=== PATIENT | female | born 1985 | race Caucasian/White ===

== ENCOUNTER → 2016-07-03 | Outpatient (CLI) | payer OTHER ==
[2016-07-03 11:01] LABS: CH 32.2; CHCM 33.2; HCT 35.2 % (34.0-46.0); HDW 2.84; HGB 11.7 gm/dL (11.4-16.0); MCH 32.5 pg (25.0-35.0); MCHC 33.3 g/dL (31.0-37.0); MCV 97.6 fL (80.0-100.0); Mean Platelet Volume 8.1; RBC 3.61 m/uL (3.80-5.40); RDW 13.3 % (11.5-15.5); WBC 11.9 k/uL (3.8-10.6)
== END | disposition home or self-care (01) ==
LOC: LABWHC1 09:24
PROVIDERS: ATTEND Obstetrics & Gynecology
DX: Z34.82 Encounter for supervision of other normal pregnancy, second trimester (principal); Z3A.00 Weeks of gestation of pregnancy not specified
CPT/HCPCS: 36415; 82950; 85027

== ENCOUNTER → 2016-09-01 | Outpatient (CLI) | payer OTHER ==
--- NOTE | 2016-09-02 08:30 | US ---
EXAMINATION TYPE: US OB anatomy transabd third trimester DATE OF EXAM: 09/01/2016 9:32 AM COMPARISON: Second trimester ultrasound April 23, 2016 HISTORY: Large for dates O36.63X0 TECHNIQUE: Transabdominal (TA) EXAM MEASUREMENTS: GESTATIONAL AGE / DATING Physician Established: (34 weeks/5 days) EDC: 10/08/16 Dates by LMP: (34 weeks/5 days) EDC: 10/08/16 Dates by First Scan: (34 weeks/5 days) EDC: 10/08/16 Dates by Current Scan for: (34 weeks/5 days) EDC: 10/08/16 SURVEY IUP: Single PLACENTA: Anterior PREVIA: No previa KARY: 11.1 cm CERVICAL LENGTH (transabdominal: norm > 3.0cm): 5.1 cm BIOMETRY PRESENTATION: Vertex LIE: Longitudinal BPD: 8.4 cm 33 weeks / 6 days HC: 32. cm 36 weeks / 1 days AC: 31 cm 35 weeks / 1 days FL: 6.2 cm 35 weeks / 3 days ESTIMATED WEIGHT IN GRAMS: 2382 grams ESTIMATED WEIGHT IN LBS/OZS: 5 lbs. 4 oz. WEIGHT PERCENTAGE BASED ON ESTABLISHED DATE: 32 % HC/AC: 1.0 FL/AC: 20 HEART RATE: 135 bpm RHYTHM: Normal ANATOMY SEEN (within normal limits): Three Vessel Cord Stomach Midline Falx Cavus Septi Pellucidi Kidneys (bilateral) Bladder Longitudinal Spine Transverse Spine Nose / Lips ANATOMY NOT SEEN: * Lateral Vent (< 1 cm) cm * Cisterna Magna (< 1.1 cm) cm * Nuchal Fold (< 0.6 cm) cm * Cerebellum (varies with age) cm Choroid Plexus (bilateral) Four Chamber Heart Outflow tracts: LVOT/RVOT Situs Diaphragm Cord Insert Arms (bilateral) Legs (bilateral) Single live intrauterine gestation is redemonstrated. Normal cephalad presentation to fetus is curren tly seen. There is no ultrasound evidence for placenta previa. Amniotic fluid index is within normal limits. biometry measurements are congruent and within normal limits. Detailed anatomical surve y is suboptimal due to patient's advanced age with multiple structures not seen as noted above. During real-time scanning and still images saved show noted above structures to appear within normal limits. IMPRESSION: As above.
== END | disposition home or self-care (01) ==
LOC: RADUSWWP 08:58
PROVIDERS: ATTEND Obstetrics & Gynecology
DX: O36.63X0 Maternal care for excessive fetal growth, third trimester, not applicable or unspecified (principal); Z3A.13 13 weeks gestation of pregnancy
CPT/HCPCS: 76811

== ENCOUNTER 2016-09-26 23:41 | Outpatient (CLI) | payer OTHER ==
[2016-09-27 00:32] VITALS: BP 125/77; PULSE 102; RESP 15; TEMP 96.9
== END 2016-09-27 00:34 | disposition home or self-care (01) ==
LOC: FBPOP 23:41
PROVIDERS: ATTEND Obstetrics & Gynecology
DX: O47.1 False labor at or after 37 completed weeks of gestation (principal); Z3A.38 38 weeks gestation of pregnancy
CPT/HCPCS: 59025; G0463; 99213

== ENCOUNTER 2016-10-08 05:59 | Inpatient (IN) | payer OTHER ==
--- NOTE | 2016-10-08 06:11 | P.HPOB ---
History of Present Illness H&P Date: 10/08/16 Chief Complaint: Patient's presenting for requested induction of labor. This patient is a pleasant 31-year-old 3 para 2 female estimated date of confinement 10/08/2016 estimated gestational age 40 weeks who presents to labor and delivery for requested induction of labor. Patient's care has been uncomplicated. Review of Systems Constitutional: Denies chills, Denies fever Ears, nose, mouth and throat: Denies headache, Denies sore throat Cardiovascular: Denies chest pain, Denies shortness of breath Respiratory: Denies cough Gastrointestinal: Reports heartburn Genitourinary: Reports Menstruation: Reports amenorrhea Musculoskeletal: Denies myalgias Integumentary: Denies pruritus, Denies rash Neurological: Denies numbness, Denies weakness Psychiatric: Denies anxiety, Denies depression Endocrine: Denies fatigue, Denies weight change Past Medical History Past Medical History: No Reported History History of Any Multi-Drug Resistant Organisms: None Reported Past Surgical History: No Surgical Hx Reported Past Anesthesia/Blood Transfusion Reactions: No Reported Reaction Past Psychological History: No Psychological Hx Reported Smoking Status: Never smoker Past Alcohol Use History: None Reported Past Drug Use History: None Reported Medications and Allergies Home Medications Medication Instructions Recorded Confirmed Type Pnv with Ca,No.72/Iron/FA 1 each PO DAILY 09/26/16 09/26/16 History [ Plus Tablet] Allergies Allergy/AdvReac Type Severity Reaction Status Date / Time No Known Allergies Allergy Verified 09/26/16 23:58 Exam - OBG Physical Exam Abdomen: bowel sounds normal, no diffuse tenderness, no bruit present, no guarding noted, no hepatomegaly, no splenomegaly, no mass Vulva: both: normal Vagina: normal moisture, no discharge Cervix: no lesion (Cervix in the office is 1-2 cm and thick.), no discharge Uterus: enlarged (Fundal height is consistent with term .) Results blood work shows she is be positive, rubella immune, RPR nonreactive, HIV nonreactive, hepatitis B negative, ultrasounds have been normal. Assessment and Plan (1) Third trimester Narrative/Plan: This is a pleasant 31-year-old 3 para 2 female 40-0/7 weeks gestation for requested induction of labor. Plan is induction of labor and anticipate vaginal delivery. Status: Acute (2) Elective induction of labor planned Status: Acute
[2016-10-08] MEDS ORDERED: TERBUTALINE 1 MG/ML VIAL SQ PRN (06:14)
[2016-10-08] MEDS ORDERED: OXYTOCIN 10 UNIT/ML 1 ML VIAL IM PRN (06:14)
[2016-10-08] MEDS ORDERED: CARBOPROST TROMETHAMINE 250 MCG/ML 1 ML AMP IM PRN (06:14)
[2016-10-08] MEDS ORDERED: LIDOCAINE 1% (PF) 10 MG/ML (30 ML SDV) SQ PRN (06:14)
[2016-10-08] MEDS ORDERED: OXYTOCIN 20 UNITS/1000 ML NS 1,000 ML IV SCH ×2 (06:14→18:33)
[2016-10-08] MEDS ORDERED: METHYLERGONOVINE 0.2 MG/ML 1 ML AMP IM PRN (06:14)
[2016-10-08] MEDS: LACTATED RINGERS 1,000 ML IV SCH ×2 (06:35→12:20)
[2016-10-08 06:56] VITALS: BMI 34.2
[2016-10-08 08:01] LABS: Basophils # (A) 0.1 k/uL (0-0.2); Basophils % (A) 0 %; CH 27.8; CHCM 31.8; Eosinophils # (A) 0.3 k/uL (0-0.7); Eosinophils % (A) 2 %; HCT 32.4 % (34.0-46.0); HDW 3.71; HGB 10.4 gm/dL (11.4-16.0); Hypochromasia Moderate; Luc # (Auto) 0.24; Luc % (Auto) 2; Lymphocytes % (A) 20 %; MCH 28.3 pg (25.0-35.0); MCHC 32.2 g/dL (31.0-37.0); MCV 87.9 fL (80.0-100.0); Mean Platelet Volume 10.8; Monocytes # (A) 0.8 k/uL (0-1.0); Monocytes % (A) 5 %; Neutrophils # (A) 10.2 k/uL (1.3-7.7); Neutrophils % (A) 70 %; Poikilocytosis Slight; RBC 3.68 m/uL (3.80-5.40); WBC 14.6 k/uL (3.8-10.6); WBC (Perox) 15.22
[2016-10-08] MEDS ORDERED: SODIUM CHLORIDE 0.9% 100 ML BAG ONE (11:40)
[2016-10-08] MEDS ORDERED: BUPIVACAINE (PF) 0.25% 30 ML VIAL ONE (11:40)
[2016-10-08] MEDS ORDERED: fentaNYL (PF) 50 MCG/ML 5 ML AMP ONE (11:40)
--- NOTE | 2016-10-08 18:27 | P.PROBDLV ---
Vaginal Delivery Note - . Vaginal Delivery Note: Normal vaginal delivery viable male infant Apgars 9 and 10 delivery time is 1807 hrs. Please see dictated H&P for intimate details of this patient's admission. Brief summary this pleasant 31-year-old 3 para 2 female 40-0/7 weeks gestation who is admitted to labor and delivery for elective induction of labor. On admission patient is 2-3 cm dilated has artificial rupture membranes for thin meconium-stained fluid. heart tones are reassuring. His Pitocin induction of labor per protocol. Patient's labor does progress and she gets an epidural for pain control. Patient progresses to complete pushes for approximately 10:15 minutes. Patient pushes the head to the perineum. Posterior perineum was infiltrated with 1% lidocaine and a midline episiotomy is made. We have controlled delivery of the 's head over the perineum. Mouth and nares are bulb suctioned. There is no evidence of a nuchal cord. Gentle downward traction we have delivery the anterior and posterior shoulder and rest this infant's body. This is a vigorous viable male infant Apgars are 9 and 10 delivery time is 1807 hrs. After delivery of the infant the umbilical cord is doubly clamped and cut it appears to be trivascular. The placenta spontaneously delivered intact and does appear to be meconium-stained. Inspection of the perineum shows a second-degree laceration which is repaired with 3-0 Vicryl usual fashion good reapproximation is noted. Estimated blood loss is 150 mL. There are no complications. All counts are correct 3. and mother are stable delivery room.
[2016-10-08] MEDS ORDERED: BISACODYL 10 MG SUPP RECTAL PRN (18:33)
[2016-10-08] MEDS ORDERED: IBUPROFEN 600 MG TAB PO PRN (18:33)
[2016-10-08] MEDS ORDERED: Acetaminophen-Codeine 300-30mg TAB PO PRN ×2 (18:33)
[2016-10-08] MEDS ORDERED: DIPH,PERTUS(ACELL)TETVAC-LF 0.5 ML VIAL IM ONE (18:33)
[2016-10-08] MEDS ORDERED: diphenhydrAMINE 25 MG CAP PO PRN (18:33)
[2016-10-08] MEDS ORDERED: WITCH HAZEL 1 EACH MED..PAD TOPICAL PRN (18:33)
[2016-10-08] MEDS ORDERED: HYDROCORTISONE 2.5% RECTAL CREAM 30 GM TUBE RECTAL PRN (18:33)
[2016-10-08] MEDS ORDERED: BUPIVACAINE (PF) 0.25% 25 ML, fentaNYL (PF) 200 MCG in SODIUM CHLORIDE 0.9% 71 ML EPIDURAL ONE (18:33)
[2016-10-08] MEDS ORDERED: BENZOCAINE/MENTHOL SPRAY 1 GM/SPRAY AEROSOL TOPICAL PRN (18:33)
[2016-10-08] MEDS ORDERED: LANOLIN CREAM 5 GM TUBE TOPICAL PRN (18:33)
[2016-10-08] MEDS ORDERED: ACETAMINOPHEN TAB 325 MG TAB PO PRN (18:33)
[2016-10-08] MEDS ORDERED: SIMETHICONE 80 MG CHEWABLE PO PRN (18:33)
[2016-10-08] MEDS ORDERED: diphenhydrAMINE 50 MG/ML 1 ML VIAL IVP PRN (18:33)
[2016-10-08] MEDS ORDERED: ZOLPIDEM 5 MG TAB PO PRN (18:33)
[2016-10-08] MEDS: SENNOSIDES-DOCUSATE SODIUM 1 EACH TAB PO SCH ×2 (19:59→20:38)
--- NOTE | 2016-10-09 06:03 | P.PNOBGVD ---
Subjective - Subjective Patient reports: Reports appetite normal, Reports voiding normally, Reports pain well controlled, Reports ambulating normally : doing well Objective - Latest Vital Signs Latest vital signs: Vital Signs Temp Pulse Resp BP 10/09/16 04:00 98.0 F 86 15 125/75 10/09/16 00:00 98 F 78 15 125/70 10/08/16 20:40 87 15 115/58 10/08/16 20:10 88 15 117/58 10/08/16 19:40 76 15 122/58 10/08/16 19:25 97.3 F L 80 15 116/56 10/08/16 19:09 90 16 151/71 10/08/16 18:55 85 16 113/68 10/08/16 18:40 97.5 F L 90 16 112/77 10/08/16 06:41 98.2 F 108 H 16 134/78 Intake and Output 10/08/16 10/08/16 10/09/16 14:59 22:59 06:59 Output Total 150 Balance -150 Output: Estimated Blood Loss 150 Other: # Voids 1 - Exam Lungs: bilateral: normal Chest: Normal S1, Normal S2 Extremities: Present: normal Abdomen: Present: normal appearance, soft Uterus: Present: normal, firm - Labs Labs: Abnormal Lab Results - Last 24 Hours (Table) 10/08/16 Range/Units 06:43 WBC 14.6 H (3.8-10.6) k/uL RBC 3.68 L (3.80-5.40) m/uL Hgb 10.4 L (11.4-16.0) gm/dL Hct 32.4 L (34.0-46.0) % Neutrophils # 10.2 H (1.3-7.7) k/uL Assessment and Plan (1) Third trimester Narrative/Plan: Post day #1. Vital signs are stable and she is afebrile, she wishes to go home. Uterus is firm nontender she's having normal lochia. My impression is that this is a normal post course patient is felt to be stable for discharge home later today. Current Visit: Yes Status: Acute Code(s): Z33.1 - STATE, INCIDENTAL SNOMED Code(s): 42746636 (2) Elective induction of labor planned Current Visit: Yes Status: Acute Code(s): [id number] - SNOMED Code(s): 602931791
--- NOTE | 2016-10-09 06:08 | P.DS ---
Providers Date of admission: 10/08/16 05:59 Expected date of discharge: 10/09/16 Attending physician: Samir Mattson Primary care physician: Stated None - Discharge Diagnosis(es) (1) Third trimester Current Visit: Yes Status: Acute (2) Elective induction of labor planned Current Visit: Yes Status: Acute Hospital Course: Please see dictated H&P for intimate details of this patient's admission. Brief summary this is a pleasant 31-year-old 3 para 2 female 40-0/7 weeks who presents to labor and delivery for elective induction of labor. Patient has uncomplicated induction of labor goes on to have a vaginal delivery viable male infant. Please see dictated delivery note. day 1 patient without complaints and wishes to go home. Patient's felt be stable for discharge home follow up with me in 6 weeks. Procedures: Induction of labor and normal vaginal delivery Patient Condition at Discharge: Good Plan - Discharge Summary New Discharge Prescriptions: Acetaminophen-Codeine 300-30mg [Tylenol w/codeine #3] 1 - 2 each PO Q4HR PRN # 30 tab PRN Reason: Mild Pain exceeding Tylenol Ibuprofen [Motrin] 600 mg PO Q6HR PRN #40 tab PRN Reason: Mild Pain Or Fever >= 100.5 Discharge Medication List Pnv with Ca,No.72/Iron/FA [ Plus Tablet] 1 each PO DAILY 09/26/16 [ History] Acetaminophen-Codeine 300-30mg [Tylenol w/codeine #3] 1 - 2 each PO Q4HR PRN # 30 tab 10/09/16 [Rx] Ibuprofen [Motrin] 600 mg PO Q6HR PRN #40 tab 10/09/16 [Rx] Follow up Appointment(s)/Referral(s): Samir Mattson MD [STAFF PHYSICIAN] - 11/19/16 2:30 pm Patient Instructions/Handouts: Vaginal Delivery (DC) Activity/Diet/Wound Care/Special Instructions: No intercourse or anything per vagina for 6 weeks. Please call if any fever, chills, excessive vaginal bleeding, and/or abdominal pain.
[2016-10-09] MEDS: SENNOSIDES-DOCUSATE SODIUM 1 EACH TAB PO SCH (08:18)
[2016-10-09 16:32] VITALS: BP 111/59; PULSE 66; RESP 18; TEMP 97.2
== END 2016-10-09 18:30 | disposition home or self-care (01) | DRG 775 ==
LOC: 4FBP 05:59
PROVIDERS: ADMIT Obstetrics & Gynecology; ATTEND Obstetrics & Gynecology
PROC: 3E033VJ Introduction of Other Hormone into Peripheral Vein, Percutaneous Approach (ICD-10-PCS; principal; 2016-10-08)
PROC: 0KQM0ZZ Repair Perineum Muscle, Open Approach (ICD-10-PCS; principal; 2016-10-08)
PROC: 0W8NXZZ Division of Female Perineum, External Approach (ICD-10-PCS; principal; 2016-10-08)
PROC: 3E0R3CZ (ICD-10-PCS; principal; 2016-10-08)
PROC: 00HU33Z Insertion of Infusion Device into Spinal Canal, Percutaneous Approach (ICD-10-PCS; principal; 2016-10-08)
PROC: 10907ZC Drainage of Amniotic Fluid, Therapeutic from Products of Conception, Via Natural or Artificial Opening (ICD-10-PCS; principal; 2016-10-08)
PROC: 10E0XZZ Delivery of Products of Conception, External Approach (ICD-10-PCS; principal; 2016-10-08)
DX: O48.0 Post-term pregnancy (principal); O77.0 Labor and delivery complicated by meconium in amniotic fluid; Z37.0 Single live birth; Z3A.40 40 weeks gestation of pregnancy; O70.1 Second degree perineal laceration during delivery
CPT/HCPCS: 85025; 88307; 90471; 90715

== ENCOUNTER 2018-02-17 19:52 | Outpatient (CLI) | payer OTHER ==
[2018-02-17 21:27] VITALS: BP 127/78; PULSE 118; RESP 16; TEMP 97.5
--- NOTE | 2018-02-18 00:48 | P.MSEPDOC ---
Presenting Problems - Arrival Data Date of Arrival on Unit: 02/17/18 Time of Arrival on Unit: 19:52 Mode of Transport: Wheelchair - Complaint OB-Reason for Admission/Chief Complaint: Possible Onset of Labor Medical History - Information : 4 Para: 3 Term: 3 : 0 Abortions: Spontaneous or Elective: 0 Number of Living Children: 3 - Gestational Age Gestational Age by VICTOR HUGO (wks/days): 39 Weeks and 0 Days - History Complications: Smoker Review of Systems - Review of Systems Constitutional: No problems Breast: No problems ENT: No problems Cardiovascular: No problems Respiratory: No problems Gastrointestinal: No problems Genitourinary: No problems Musculoskeletal: No problems Neurological: No problems Skin: No problems Vital Signs - Temperature Temperature: 97.5 F Temperature Source: Temporal Artery Scan - Pulse Right Brachial Pulse Rate: 118 Pulse Assessment Method: Automatic Cuff - Respirations Respiratory Rate: 16 Oxygen Delivery Method: Room Air O2 Sat by Pulse Oximetry: 99 - Blood Pressure Right Arm Blood Pressure: 127/78 Blood Pressure Mean: 94 Blood Pressure Source: Automatic Cuff Medical Screen Scoring (Pre) - Cervical Exam Dilation: 1-3 cm = 1 Membranes: Intact - Uterine Contractions Frequency: > or = 36 weeks =2 - Maternal Vital Signs Maternal Temperature: N/A Maternal Blood Pressure: N/A Signs of Preeclampsia: N/A Maternal Respirations: N/A - Pain Assessment Pain Location and Character: Abdomen Pain Scale Used: Numeric (1 - 10) Pain Intensity: 7 Pain Description: *Acute, Cramping Pain Frequency: Intermittent Pain Duration Units: Minutes Pain Behavior: None Exhibited Pain Aggravating Factors: Contractions - Maternal Trauma Maternal Trauma: N/A - Assessment Baseline FHR: 130 Heart Rate - NICHD Category: Category I (Normal) = 0 NST: Reactive - Total Score Total Score (Pre): 3 - Level of Risk Level of Risk: Low (0-5) Physician Notification (Pre) - Physician Notified Physician Notified Date: 02/17/18 Physician Notified Time: 21:03 Physician/Practitioner Notifed:: Dr. House Spoke With: Dr. House New Order Received: Yes - Notification Comment Comment: Dr. House called and given report on pt. Pt c/o. VS wnl. Vag exam of 2.5 /70/-1. with no change after one hour. Pt of Dr. Mattson who missed last apt 6- 8 weeks ago and. has failed to reschedule. Orders recieved to send Urine for drug screen and to d/c pt to. home. To educate pt to call office for apt in AM Disposition - Disposition OB Disposition: Discharge to home Discharge Date: 02/17/18 Discharge Time: 21:15 I agree with the RN Medical Screening Exam: Yes Risk & Benefit of care provided described in d/c instruction: Yes Diagnosis: FALSE LABOR AT OR AFTER 37 COMPLETED WEEKS OF GESTATION
[2018-02-18 06:06] LABS: Urine Alcohol Negative (Negative); Urine Barbiturate Negative (Negative); Urine Cocaine Negative (Negative); Urine Methadone Negative (Negative); Urine Opiates Negative (Negative); Urine Phencyclidine Negative (Negative)
== END 2018-02-17 21:15 | disposition home or self-care (01) ==
LOC: FBPOP 19:52
PROVIDERS: ATTEND Obstetrics & Gynecology
DX: O47.1 False labor at or after 37 completed weeks of gestation (principal); O99.333 Smoking (tobacco) complicating pregnancy, third trimester; Z3A.39 39 weeks gestation of pregnancy
CPT/HCPCS: 59025; 80306; G0463; 99213

== ENCOUNTER 2018-02-19 20:00 | Inpatient (IN) | payer OTHER ==
[~2018-02-19 20:00] MED LIST: BUPIVACAINE (PF) 0.25% 30 ML VIAL ONE; ROPIVACAINE 5MG/ML 20ML VIAL ONE; SODIUM CHLORIDE 0.9% 100 ML BAG ONE; fentaNYL (PF) 50 MCG/ML 5 ML AMP ONE
[2018-02-19] MEDS ORDERED: CARBOPROST TROMETHAMINE 250 MCG/ML 1 ML AMP IM PRN (22:26)
[2018-02-19] MEDS ORDERED: LIDOCAINE 0.5% (PF) 5 MG/ML (50 ML SDV) SQ PRN (22:26)
[2018-02-19] MEDS ORDERED: OXYTOCIN 10 UNIT/ML 1 ML VIAL IM PRN (22:26)
[2018-02-19] MEDS ORDERED: METHYLERGONOVINE 0.2 MG/ML 1 ML AMP IM PRN (22:26)
[2018-02-19] MEDS ORDERED: AMPICILLIN 2,000 MG in SODIUM CHLORIDE 0.9% 100 ML IVPB STA (22:26)
[2018-02-19] MEDS ORDERED: TERBUTALINE 1 MG/ML VIAL SQ PRN (22:26)
[2018-02-19] MEDS ORDERED: OXYTOCIN 20 UNITS/1000 ML NS 1,000 ML IV SCH (22:30)
[2018-02-19] MEDS ORDERED: LACTATED RINGERS 1,000 ML IV SCH (22:30)
[2018-02-19 23:04] VITALS: BMI 31.1
--- NOTE | 2018-02-19 23:12 | P.HPOB ---
History of Present Illness H&P Date: 02/19/18 Chief Complaint: Contractions This patient is a 32-year-old 4 para 3 female estimated date of confinement 02/24/2018 estimated gestational age 39-2/7 weeks gestation who is admitted to labor and delivery with complaints of contractions and found to be in early labor. Patient's care has been complicated by late to seek care and noncompliance with care. Patient initially presented at 18 weeks gestation and had 1 other visit however has not been in the office since then. Patient does not really have an explanation for why this is happening. She was here 2 days ago was 2 cm dilated at that time had a toxicology screen which was negative. Patient states she's continued to have contractions now 5 cm dilated. Review of Systems Gastrointestinal: Reports heartburn Genitourinary: Reports Menstruation: Reports amenorrhea Past Medical History Past Medical History: No Reported History History of Any Multi-Drug Resistant Organisms: None Reported Past Surgical History: No Surgical Hx Reported Past Anesthesia/Blood Transfusion Reactions: No Reported Reaction Smoking Status: Current every day smoker Past Alcohol Use History: None Reported Past Drug Use History: None Reported - Past Family History Father Family Medical History: Hypertension Medications and Allergies Home Medications Medication Instructions Recorded Confirmed Type Pnv,Calcium 72/Iron/Folic Acid 1 each PO DAILY 09/26/16 02/19/18 History [ Plus Tablet] Allergies Allergy/AdvReac Type Severity Reaction Status Date / Time loratadine [From Claritin-D] Allergy Anaphylaxis Verified 02/19/18 20:19 pseudoephedrine Allergy Anaphylaxis Verified 02/19/18 20:19 [From Claritin-D] Exam Vital Signs Temp Pulse Resp BP Pulse Ox 02/19/18 20:19 97.6 F 110 H 16 137/62 100 Intake and Output 02/19/18 02/19/18 02/20/18 14:59 22:59 06:59 Other: Weight 77.111 kg - OBG Physical Exam Abdomen: bowel sounds normal, no diffuse tenderness, no bruit present, no guarding noted, no hepatomegaly, no splenomegaly, no mass Vulva: both: normal Vagina: normal moisture, no discharge Cervix: Cervix is 5 cm dilated 70% effaced -2 station vertex Cervix: no lesion, no discharge Uterus: enlarged (Fundal height is enlarged) Results blood work shows she is B positive, rubella immune, RPR nonreactive, HIV nonreactive, hepatitis B was negative, ultrasounds showed normal anatomy at 18 week. Patient did not do glucose testing or have group B strep done. Assessment and Plan Assessment: This is a 32-year-old 4 para 3 female 39-2/7 weeks gestation with early active labor. Patient's noncompliance with care. Patient has moderate meconium-stained fluid. Patient is unknown group B strep status and glucose testing status. Plan is to prophylactically given IV antibiotics, anticipate vaginal delivery. Patient will need a social insurance analyst consult secondary to her noncompliance. (1) Third trimester Current Visit: No Status: Acute Code(s): Z33.1 - STATE, INCIDENTAL SNOMED Code(s): 29217216 (2) Medical non-compliance Current Visit: Yes Status: Acute Code(s): Z91.19 - PATIENT'S NONCOMPLIANCE W OTH MEDICAL TREATMENT AND REGIMEN SNOMED Code(s): 820396570 (3) Active labor Current Visit: Yes Status: Acute Code(s): [id number] - SNOMED Code(s): 02870634 (4) Meconium in amniotic fluid affecting management of mother Current Visit: Yes Status: Acute Code(s): O36.8990 - MATERNAL CARE FOR OTH PROBLEMS, UNSP TRIMESTER, UNSP SNOMED Code(s): 63182879
[2018-02-19 23:22] LABS: Anisocytosis Slight; Hypochromasia Marked; Poikilocytosis Slight
[2018-02-19 23:25] LABS: HCT 28.6 % (34.0-46.0); HGB 9.2 gm/dL (11.4-16.0); MCH 25.7 pg (25.0-35.0); MCHC 32.2 g/dL (31.0-37.0); MCV 79.8 fL (80.0-100.0); Mean Platelet Volume 10.7; Microcytosis Slight; Platelet Count 256 k/uL (150-450); RBC 3.58 m/uL (3.80-5.40); RDW 17.3 % (11.5-15.5); WBC 19.8 k/uL (3.8-10.6)
[2018-02-19 23:45] LABS: Large Platelets Present; Lymphocytes # (M) 4.95 k/uL (1.0-4.8); Neutrophils # (M) 14.65 k/uL (1.3-7.7); Neutrophils % (M) 74 %; Nucleated Red Blood Cells 0 /100 WBC (0-0); Total Cells Counted 100
[2018-02-20] MEDS ORDERED: AMPICILLIN 1,000 MG in SODIUM CHLORIDE 0.9% 50 ML IVPB SCH (02:27)
[2018-02-20] MEDS ORDERED: LANOLIN CREAM 5 GM TUBE TOPICAL PRN (04:33)
[2018-02-20] MEDS ORDERED: ACETAMINOPHEN TAB 325 MG TAB PO PRN (04:33)
[2018-02-20] MEDS ORDERED: BISACODYL 10 MG SUPP RECTAL PRN (04:33)
[2018-02-20] MEDS ORDERED: SIMETHICONE 80 MG CHEWABLE PO PRN (04:33)
[2018-02-20] MEDS ORDERED: diphenhydrAMINE 25 MG CAP PO PRN (04:33)
[2018-02-20] MEDS ORDERED: diphenhydrAMINE 50 MG/ML 1 ML VIAL IVP PRN (04:33)
[2018-02-20] MEDS ORDERED: ZOLPIDEM 5 MG TAB PO PRN (04:33)
[2018-02-20] MEDS ORDERED: BENZOCAINE/MENTHOL SPRAY 1 GM/SPRAY AEROSOL TOPICAL PRN (04:33)
[2018-02-20] MEDS ORDERED: HYDROCORTISONE 2.5% RECTAL CREAM 30 GM TUBE RECTAL PRN (04:33)
[2018-02-20] MEDS ORDERED: WITCH HAZEL 1 EACH MED..PAD TOPICAL PRN (04:33)
--- NOTE | 2018-02-20 04:43 | P.PROBDLV ---
Vaginal Delivery Note - . Vaginal Delivery Note: Normal vaginal delivery viable male infant Apgars 8 and 9 delivery time was 0406 hrs. Please see dictated H&P for intimate details of this patient's admission. Brief summary this is a 32-year-old 4 para 3 female 39-2/7 weeks gestation admitted to labor and delivery with regular painful contractions found to be in active labor. Patient is artificial rupture membranes for moderate to thick meconium-stained fluid. She is given ampicillin due to unknown group B strep status. Patient's labor progresses and she does get an epidural for pain control. Patient gets to complete pushes approximate 3 or 4 times pushes the head over the intact perineum. Nurse director account management is present time of delivery. There is a nuchal cord 1 which is reduced. With gentle downward traction we then have delivery the anterior and posterior shoulder and rest this 's body. Is a vigorous viable male infant Apgars are 8 and 9. Infant has spontaneous respirations and good cry. is late on the mother's abdomen. With the cord done pulsating and is doubly clamped and then cut. The placenta is then spontaneously delivered intact and appears to be thick meconium-stained. Inspection of perineum shows superficial bilateral perineal lacerations require some suture of 4-0 Vicryl with excellent reapproximation. All counts are correct 3. There are no complications. and mother stable delivery room.
[2018-02-20] MEDS ORDERED: OXYTOCIN 20 UNITS/1000 ML NS 1,000 ML IV SCH (04:45)
--- NOTE | 2018-02-20 04:49 | P.MSEPDOC ---
Presenting Problems - Arrival Data Date of Arrival on Unit: 02/20/18 Time of Arrival on Unit: 20:00 Mode of Transport: Wheelchair - Complaint OB-Reason for Admission/Chief Complaint: Possible Onset of Labor Medical History - Information : 4 Para: 3 Term: 3 : 0 Abortions: Spontaneous or Elective: 0 Number of Living Children: 3 - Gestational Age Gestational Age by VICTOR HUGO (wks/days): 39 Weeks and 3 Days Review of Systems - Review of Systems Constitutional: No problems Breast: No problems ENT: No problems Cardiovascular: No problems Respiratory: No problems Gastrointestinal: No problems Genitourinary: No problems Musculoskeletal: No problems Neurological: No problems Skin: No problems Vital Signs - Temperature Temperature: 97.4 F Temperature Source: Temporal Artery Scan - Pulse Left Pulse Rate: 100 Pulse Assessment Method: Automatic Cuff - Respirations Respiratory Rate: 16 Oxygen Delivery Method: Room Air - Blood Pressure Right Arm Blood Pressure: 114/53 Blood Pressure Mean: 73 Blood Pressure Source: Automatic Cuff Medical Screen Scoring (Pre) - Cervical Exam Dilation: 1-3 cm = 1 Effacement: Exam Deferred Membranes: Intact - Uterine Contractions Frequency: > or = 36 weeks =2 Duration: > 40 seconds = 2 Intensity: N/A - Maternal Vital Signs Maternal Temperature: N/A Maternal Blood Pressure: N/A Signs of Preeclampsia: N/A Maternal Respirations: N/A - Pain Assessment Pain Location and Character: Abdomen Pain Scale Used: Numeric (1 - 10) Pain Intensity: 8 Pain Management Goal: 2 Pain Description: *Acute, Pressure, Tightness Pain Frequency: Intermittent Pain Duration Units: Minutes Pain Behavior: Vocalization Pain Aggravating Factors: Contractions Non-Pharmacological Interventions: Darkened Room, Distraction, Position/ Reposition, Relaxation Technique - Maternal Trauma Maternal Trauma: N/A - Assessment Baseline FHR: 130 Heart Rate - NICHD Category: Category I (Normal) = 0 NST: Reactive Position: N/A Station: N/A - Total Score Total Score (Pre): 5 - Level of Risk Level of Risk: Low (0-5) Physician Notification (Pre) - Physician Notified Physician Notified Date: 02/19/18 Physician Notified Time: 22:22 Physician/Practitioner Notifed:: Dr. Mattson Spoke With: Dr. Mattson New Order Received: Yes (admit) - Notification Comment Comment: orders to admit pt, start antibotics and physician will be in to assess pt. Disposition - Disposition OB Disposition: Admit Discharge Date: 02/19/18 Discharge Time: 22:22 I agree with the RN Medical Screening Exam: Yes Risk & Benefit of care provided described in d/c instruction: Yes Diagnosis: OTHER SPECIFIED COMPLICATIONS OF LABOR AND DELIVERY
[2018-02-20] MEDS: SENNOSIDES-DOCUSATE SODIUM 1 EACH TAB PO SCH ×2 (19:12→19:39)
[2018-02-20] MEDS: IBUPROFEN 600 MG TAB PO PRN (19:47)
--- NOTE | 2018-02-21 07:11 | P.PNOBGVD ---
Subjective - Subjective Patient reports: Reports appetite normal, Reports voiding normally, Reports pain well controlled, Reports ambulating normally : doing well Objective - Latest Vital Signs Latest vital signs: Vital Signs Temp Pulse Resp BP 02/20/18 23:33 98.0 F 78 16 102/61 02/20/18 16:00 98.0 F 70 14 103/55 02/20/18 12:00 98.1 F 76 16 104/64 02/20/18 08:00 98.5 F 84 16 104/50 Intake and Output 02/20/18 02/21/18 02/21/18 22:59 06:59 14:59 Other: # Voids 1 1 - Exam Lungs: bilateral: normal Chest: Normal S1, Normal S2 Extremities: Present: normal Abdomen: Present: normal appearance, soft Uterus: Present: normal, firm Assessment and Plan Assessment: day #1. Patient is resting without complaints and wishes to go home. Vital signs are stable and she is afebrile. Uterus is firm nontender and she is having normal lochia. I impression is a normal course. Plan is to continue routine care discharge home later today. (1) Third trimester Current Visit: No Status: Acute Code(s): Z33.1 - STATE, INCIDENTAL SNOMED Code(s): 08447489 (2) Medical non-compliance Current Visit: Yes Status: Acute Code(s): Z91.19 - PATIENT'S NONCOMPLIANCE W OTH MEDICAL TREATMENT AND REGIMEN SNOMED Code(s): 133242179 (3) Active labor Current Visit: Yes Status: Acute Code(s): [id number] - SNOMED Code(s): 78307348 (4) Meconium in amniotic fluid affecting management of mother Current Visit: Yes Status: Acute Code(s): O36.8990 - MATERNAL CARE FOR OTH PROBLEMS, UNSP TRIMESTER, UNSP SNOMED Code(s): 75385064
--- NOTE | 2018-02-21 07:28 | P.DS ---
Providers Date of admission: 02/19/18 22:24 Expected date of discharge: 02/21/18 Attending physician: Samir Mattson Primary care physician: Stated None - Discharge Diagnosis(es) (1) Third trimester Current Visit: No Status: Acute (2) Medical non-compliance Current Visit: Yes Status: Acute (3) Active labor Current Visit: Yes Status: Acute (4) Meconium in amniotic fluid affecting management of mother Current Visit: Yes Status: Acute Hospital Course: Please see dictated H&P for intimate details of this patient's admission. Brief summary this is a pleasant 32-year-old 4 para 3 female 39-3/7 weeks gestation admitted to labor and delivery in active labor. Please see dictated admission history and physical. Patient was on have a vaginal delivery viable male . Please see dictated delivery note. day #1 patient without complaints wishes to go home. I did have psychosocial rehabilitation counselor see this patient because she subsequently had 2 visits this . Patient was felt to be stable for discharge home follow up with me in 6 weeks. Procedures: Normal vaginal delivery Patient Condition at Discharge: Good Plan - Discharge Summary New Discharge Prescriptions: New Ibuprofen [Motrin] 600 mg PO Q6HR PRN #40 tab PRN Reason: Mild Pain Or Fever >= 100.5 No Action Pnv,Calcium 72/Iron/Folic Acid [ Plus Tablet] 1 each PO DAILY Discharge Medication List Pnv,Calcium 72/Iron/Folic Acid [ Plus Tablet] 1 each PO DAILY 09/26/16 [ History] Ibuprofen [Motrin] 600 mg PO Q6HR PRN #40 tab 02/21/18 [Rx] Follow up Appointment(s)/Referral(s): Samir Mattson MD [STAFF PHYSICIAN] - 6 Weeks Patient Instructions/Handouts: Vaginal Delivery (DC) Activity/Diet/Wound Care/Special Instructions: Nothing per vagina for 6 weeks. Please call if any fever, chills, excessive vaginal bleeding and/or abdominal pain. Discharge Disposition: HOME SELF-CARE
[2018-02-21] MEDS: IBUPROFEN 600 MG TAB PO PRN (07:41)
[2018-02-21] MEDS: SENNOSIDES-DOCUSATE SODIUM 1 EACH TAB PO SCH (07:41)
[2018-02-21 08:03] VITALS: BP 99/54; PULSE 77; RESP 18; TEMP 98.5
== END 2018-02-21 10:00 | disposition home or self-care (01) | DRG 775 ==
LOC: FBPOP 20:00 → 4FBP 22:24
PROVIDERS: ADMIT Obstetrics & Gynecology; ATTEND Obstetrics & Gynecology
PROC: 00HU33Z Insertion of Infusion Device into Spinal Canal, Percutaneous Approach (ICD-10-PCS; 2018-02-19)
PROC: 3E0R3BZ Introduction of Anesthetic Agent into Spinal Canal, Percutaneous Approach (ICD-10-PCS; 2018-02-19)
PROC: 10E0XZZ Delivery of Products of Conception, External Approach (ICD-10-PCS; principal; 2018-02-20)
PROC: 0HQ9XZZ Repair Perineum Skin, External Approach (ICD-10-PCS; 2018-02-20)
DX: O69.81X0 Labor and delivery complicated by cord around neck, without compression, not applicable or unspecified (principal); O77.0 Labor and delivery complicated by meconium in amniotic fluid; O99.334 Smoking (tobacco) complicating childbirth; F17.200 Nicotine dependence, unspecified, uncomplicated; O70.0 First degree perineal laceration during delivery; Z37.0 Single live birth; Z3A.39 39 weeks gestation of pregnancy; Z91.19 Patient's noncompliance with other medical treatment and regimen; Z71.6 Tobacco abuse counseling; Z79.899 Other long term (current) drug therapy; Z88.8 Allergy status to other drugs, medicaments and biological substances; Z82.49 Family history of ischemic heart disease and other diseases of the circulatory system
CPT/HCPCS: 59025; 85025; 86850; 86870; 86880; 86900; 86901; 86902; 88307; 99213